=== PATIENT | male | born 1950 | race Caucasian/White ===

== ENCOUNTER 2017-11-05 11:04 | Day surgery (SDC) | payer MEDICARE, BC ==
[2017-10-30 11:21] VITALS: BMI 37.5
[2017-11-05 11:50] VITALS: BP 166/90; PULSE 90; RESP 18; TEMP 97.7; O2SAT 97
== END 2017-11-05 12:19 | disposition home or self-care (01) ==
LOC: C.SDS 11:04
PROVIDERS: ATTEND Specialist
DX: N40.1 Benign prostatic hyperplasia with lower urinary tract symptoms (principal); R39.15 Urgency of urination; R35.0 Frequency of micturition; Z53.09 Procedure and treatment not carried out because of other contraindication

== ENCOUNTER 2017-11-26 11:32 | Day surgery (SDC) | payer MEDICARE, BC ==
[2017-10-30 10:59] VITALS: BMI 37.5
[2017-11-26] MEDS ORDERED: Ciprofloxacin 400mg/200ml D5W 400 MG/200 ML BAG IVPB ONE (15:23)
[2017-11-26] MEDS ORDERED: Iohexol 240 200 ML ONE (15:25)
[2017-11-26] MEDS ORDERED: Propofol 10 mg/ml Inj (20 ML) ONE (15:30)
[2017-11-26] MEDS ORDERED: Midazolam 2 MG/2 ML VIAL ONE (15:30)
[2017-11-26 18:15] VITALS: BP 159/85; PULSE 82; RESP 20; TEMP 97.8; O2SAT 97
--- NOTE | 2017-11-26 18:54 | RAD ---
Date of service: 11/26/2017 HISTORY: Neurogenic bladder. COMPARISON: No prior. FINDINGS: BOWEL: Normal. No obstruction. No free air. BONES: Sclerotic osseous structures primarily thoracolumbar spine. OTHER FINDINGS: None. IMPRESSION: No acute findings related to/accounting for the clinical presentation. Additional benign and/or incidental findings described above.
--- NOTE | 2017-12-05 06:36 | OP ---
Copied To: Gene Rehman MD Attending MD: Gene Rehman MD PROCEDURE DATE: 11/26/2017 PREOPERATIVE DIAGNOSES: Neurogenic bladder, prostatic hypertrophy, and frequency. POSTOPERATIVE DIAGNOSIS: Prostatic hypertrophy causing obstruction of the bladder neck. PROCEDURE: Cystoscopy and dilatation. SURGEON: Gene Rehman MD DESCRIPTION OF PROCEDURE: While the patient in lithotomy position and after starting anesthesia, genitalia were prepped and draped in sterile fashion. The patient was given Cipro 400 mg IV piggyback. A #19 scope was inserted under direct vision. The urethra was normal. Bilateral lobe enlargement is seen partially, but the main obstruction in the bladder neck with elevation of the bladder neck from large median lobe. The bladder itself did not show sign of heavy trabeculation as we see in the neurogenic bladder, mild less than 1+ trabeculation, no tumor seen, and no stone. Dome and lateral wall were within normal limits of the bladder, and the trigone was normal. The bladder neck when the scope , it elevated to a degree obstructing the urethra. Urethra was dilated, and after emptying the bladder, the scope removed, and the patient was transferred to the recovery room in stable condition. My plan is to put him on Flomax and his Ditropan and follow him. Gene Rehman MD
== END 2017-11-26 17:55 | disposition home or self-care (01) ==
LOC: C.SDS 11:32
PROVIDERS: ATTEND Specialist
DX: N40.1 Benign prostatic hyperplasia with lower urinary tract symptoms (principal); R39.15 Urgency of urination; R35.0 Frequency of micturition; N31.9 Neuromuscular dysfunction of bladder, unspecified; N13.8 Other obstructive and reflux uropathy
CPT/HCPCS: 52281; 74018; 82948; J0744; J2270